=== PATIENT | female | born 1995 | race Caucasian/White ===

== ENCOUNTER 2021-10-31 21:18 | Emergency (ER) | payer SELFPAY ==
[~2021-10-31] VITALS: Ht 175.3 cm; Wt 86.2 kg
[2021-10-31 21:24] VITALS: BP 135/83
--- NOTE | 2021-10-31 21:31 | NUR ---
PT AMBULATORY TO BED 01.
[2021-10-31] MEDS ORDERED: ZOLP5TAB1 PO (22:50)
[2021-10-31 23:30] VITALS: BP 135/83
--- NOTE | 2021-10-31 23:50 | NUR ---
Patient discharged with v/s stable. Written and verbal after care instructions given and explained. Patient alert, oriented and verbalized understanding of instructions. Ambulatory with steady gait. All questions addressed prior to discharge. ID band removed. Patient advised to follow up with PMD. Rx of BALTAZAR given. Patient educated on indication of medication including possible reaction and side effects. Opportunity to ask questions provided and answered.
--- NOTE | 2021-10-31 23:50 | NUR ---
26 YO/F BIB SELF W C/O ALOT OF ANXIETY, FACIAL PAIN SHARP 01/15 AND LIP TWITCHING WHEN TOUCHING FACE X 2 WEEKS AGO S/P BROTHER'S , + ABSCESS TO L UPPER CHEST X1 DAY W PAIN. PM:MAY ALLERGIES: DENIES Addendum: 10/31/21 at 2350 by [email or web address] ASSESSED AT 2200
== END 2021-10-31 23:50 | disposition home or self-care (01) ==
LOC: MED 21:18
DX: F41.9 Anxiety disorder, unspecified (principal); G44.209 Tension-type headache, unspecified, not intractable; G47.00 Insomnia, unspecified; R22.2 Localized swelling, mass and lump, trunk; Z79.899 Other long term (current) drug therapy
CPT/HCPCS: 99283

== ENCOUNTER 2021-12-27 23:14 | Emergency (ER) | payer SELFPAY ==
[~2021-12-27] VITALS: Ht 175.3 cm; Wt 74.8 kg
[~2021-12-27 23:14] MED LIST: ZOLP5TAB1 PO
--- NOTE | 2021-12-27 23:52 | NUR ---
Dr. Maier examining patient.
[2021-12-27 23:53] VITALS: BP 145/86
[2021-12-28] MEDS ORDERED: BACTO TP
[2021-12-28] MEDS ORDERED: CEPH-588 PO
[2021-12-28] MEDS ORDERED: NAPR-54 PO
[2021-12-28 00:55] VITALS: BP 145/86
--- NOTE | 2021-12-28 00:55 | NUR ---
Patient discharged with v/s stable. Written and verbal after care instructions given and explained. Patient alert, oriented and verbalized understanding of instructions. Ambulatory with steady gait. All questions addressed prior to discharge. ID band removed. Patient advised to follow up with PMD. Rx of Keflex and Bactroban 2 % oint given. Patient educated on indication of medication including possible reaction and side effects. Opportunity to ask questions provided and answered.
== END 2021-12-28 00:55 | disposition home or self-care (01) ==
LOC: MED 23:14
DX: R21 Rash and other nonspecific skin eruption (principal); L01.00 Impetigo, unspecified; Z79.899 Other long term (current) drug therapy
CPT/HCPCS: 99283